=== PATIENT | male | born 1995 | race Two or more races ===

== ENCOUNTER 2018-02-08 13:45 | Emergency (ER) | payer OTHER ==
[2018-02-08] MEDS ORDERED: SODIUM CHLORIDE 0.9% 1000ML 1,000 ML IV ONE (14:15)
[2018-02-08 15:01] VITALS: PULSE 85; O2SAT 100
[2018-02-08 15:06] LABS: BILIRUBIN,TOTAL 0.9 mg/dl (0.2-1.0)
[2018-02-08 15:20] LABS: ALBUMIN 3.6 gm/dl (3.4-5.0); BASOPHILS % (AUTO) 1 % (0-3); CALCIUM 8.7 mg/dl (8.5-10.1); CREATININE 1.14 mg/dl (0.80-1.30); EOSINOPHILS % (AUTO) 1 % (0-9); HEMATOCRIT 50 % (39-53); LYMPHOCYTES % (AUTO) 14.6 % (10-50); MEAN CORPUSCULAR HEMOGLOBIN 25.9 pg (27.0-32.0); MEAN CORPUSCULAR HGB CONC 31.7 gm/dl (32.0-36.0); MEAN CORPUSCULAR VOLUME 82 fL (80-100); MONOCYTES % (AUTO) 4.8 % (0-12); NEUTROPHILS % (AUTO) 78.8 % (37-80); POTASSIUM 3.8 mMol/L (3.5-5.1); TOTAL PROTEIN 7.6 gm/dl (6.4-8.2)
[2018-02-08 15:38] VITALS: BP 134/73; RESP 18; TEMP 98.3
== END 2018-02-08 17:40 | disposition home or self-care (01) | DRG 556 ==
LOC: ED 13:45
DX: M79.18 Myalgia, other site (principal); V59.59XA Passenger in pick-up truck or van injured in collision with other motor vehicles in traffic accident, initial encounter; Y93.9 Activity, unspecified; Y92.413 State road as the place of occurrence of the external cause; Y99.9 Unspecified external cause status
CPT/HCPCS: 36415; 70450; 71260; 72125; 72128; 72131; 73590; 74177; 80053; 85025; 96365; 99284; 99291; G0390; Q9967